=== PATIENT | male | born 1965 | race Caucasian/White ===

== ENCOUNTER 2024-11-18 14:47 | Emergency (ER) | payer OTHER, SELFPAY ==
[2024-11-18 14:54] VITALS: BP 148/87; PULSE 81; RESP 20; TEMP 37; O2SAT 98
--- NOTE | 2024-11-18 15:13 | ED.URI ---
HPI - URI/Sore Throat General Stated Complaint: cold symptoms Time Seen by Provider: 11/18/24 15:14 History of Present Illness HPI Narrative: 59 y/o male presented for c/o nasal congestion and drainage, and cough. Onset 2 days. Denies sob, wheezing, n/v/d/f/c. Took Decongestant for symptoms. Related Data Home Medications ?Medication ?Instructions ?Recorded ?Confirmed ?Last Taken ?Type No Home Medications 11/18/24 11/18/24 Unknown History Allergies Allergy/AdvReac Type Severity Reaction Status Date / Time No Known Allergies Allergy Verified 11/18/24 15:13 Review of Systems Review of Systems: per HPI Exam Narrative: GENERAL: well-appearing, no acute distress. EYES: conjunctivae clear ENT: Mucous membranes moist. nasal congestion.TM pearly solis with normal light reflex bilaterally; no tragal tenderness. Oropharynx NormalNo drooling, no hoarseness, no trismus, uvula midline. No tripod positioning, hot potato voice, or soft palate swelling. NECK: Supple. No lymphadenopathy CHEST: Clear to auscultation, breath sounds equal. No respiratory distress, speaks in full sentences. HEART: Regular rate and rhythm. No murmur heard. SKIN: Warm, dry, no rash. NEURO: Alert and oriented x3. Course Course Emergency Course: Patient is aware of diagnosis, understands and agrees to treatment plan. Anticipatory guidance given. Patient agrees to follow-up as directed and is aware of reasons to seek care at the emergency department. Portions of this record may have been created with voice recognition software Level of Care: Express Care Visit Vital Signs Vital signs: Vital Signs Temperature 98.6 F 11/18/24 14:54 Pulse Rate 81 11/18/24 14:54 Respiratory Rate 98 H 11/18/24 14:54 Blood Pressure 148/87 H 11/18/24 14:54 Pulse Oximetry 98 11/18/24 14:54 Oxygen Delivery Room Air 11/18/24 14:54 Temperature 98.6 F 11/18/24 14:54 Pulse Rate 81 11/18/24 14:54 Respiratory Rate 98 H 11/18/24 14:54 Blood Pressure 148/87 H 11/18/24 14:54 Pulse Oximetry 98 11/18/24 14:54 Oxygen Delivery Room Air 11/18/24 14:54 MDM - URI/Sore Throat MDM Narrative Medical decision making narrative: Negative flu and COVID result reviewed with pt. Advise supportive treatments. Patient is appropriate for outpatient treatment and follow-up. Differential Diagnosis Differential diagnosis: Likely upper respiratory infection, viral infection and pharyngitis Discharge Plan Discharge Clinical Impression: Upper respiratory infection Patient Disposition: Home, Self-Care Condition: Stable Instructions: Antibiotic Form, Upper Respiratory Infection (ED) Additional Instructions: Flu and COVID negative. Recommendations: Flonase spray and Zyrtec (or Claritin/Abbi) over the counter Cough syrup may cause drowsiness; avoid driving or take it at night time. Tylenol 1000mg every 8 hours as needed for pain Symptomatic treatment includes: rest, fluids, and increase humidity of the air at home. Follow up with your primary care provider Go to the ER for worsening symptoms or concerns. Patient Language: Macanese Follow-up/Referrals: PHYSICIAN,PERSONAL CLOTHING LAUNDRY AIDE [Primary Care Provider] - Time of Disposition: 15:20
[2024-11-18 15:19] LABS: EDCOVIDSCREEN Negative (Negative); EDINFLUASCREEN Negative (Negative); EDINFLUBSCREEN Negative (Negative)
--- OUTSIDE RECORDS SUMMARY | 2024-11-18 15:25 | XMS_ITS | Referral Summary ---
Author Organization [facility] Building [address] Address [address] [place] [address] Care Team Providers Care Acetone Button Paster Name Role Phone Shekhar Jewell MD Primary Care Provi porsha Encounters Date Type Department Care Team Description 09/29/2024 5:00 PM DIRECTOR OF PUBLIC SAFETY Office Visit [facility] Medical [facility] Primary Care at [address] [phone] Shekhar Jewell MD Elevated blood pressure reading without diagnosis of hypertension (Primary Dx) 09/15/2024 9:33 AM DIRECTOR OF PUBLIC SAFETY - 09/15/2024 11:59 PM DIRECTOR OF PUBLIC SAFETY [place] [address] Screening for hyperlipidemia; Elevated blood pressure reading without diagnosis of hypertension Discharge Disposition: Discharge to home or self care 09/15/2024 10:00 AM DIRECTOR OF PUBLIC SAFETY Lab [facility] Outpatient Lab at [address] [phone] 09/13/2024 5:00 PM DIRECTOR OF PUBLIC SAFETY Office Visit [facility] Primary Care at [address] [phone] Shekhar Jewell MD Elevated blood pressure reading without diagnosis of hypertension (Primary Dx); Mild intermittent asthma, unspecified whether complicated; Screening for hyperlipidemia from Last 3 Months Allergies No known active allergies Medications acetaminophen (TYLENOL) 325 mg tablet Take 2 tablets (650 mg total) by mouth every 6 (six) hours as needed for pain Active albuterol HFA (PROVENTIL HFA,VENTOLIN HFA,PROAIR HFA) 90 mcg/actuation inhalerIndication s:Mild intermittent asthma, unspecified whether complicated Inhale 2 puffs every 6 (six) hours as needed for wheezing INHALE 2 PUFFS EVERY 4 TO 6 HOURS NEEDED. 1 each 3 Active Active Problems Problem Noted Date Diagnosed Date Elevated blood pressure read ing without diagnosis of hypertension 09/13/2024 Mild intermittent asthma 09/13/2024 H/O umbilical hernia repair 03/15/2022 Assessment & Plan (03/15/2022 10:13 AM CDT): No obvious hernia on today's exam, CT abd ordered, will follow. 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 Image guidance utilized Assessment & Plan (03/02/2021 2:59 PM CDT): Continue to use Sinus Rinse twice daily Restart Flonase 1-2 times daily Follow up in 3-4 weeks Assessment & Plan (02/23/2021 11:27 AM CDT): Sinus Rinse twice daily and as needed Follow up in 1-2 weeks for recheck Finish Augmentin 02/15/21 PROCEDURE PERFORMED: Endoscopic bilateral Maxillary Antrostomies Endoscopic bilateral Chas bullosa Stealth Image guidance utilized Assessment & Plan (12/21/2020 4:04 PM DIRECTOR OF PUBLIC SAFETY): Endoscopic bilateral maxillary antrostomy Endoscopic bilateral chas bullosa removal Stealth image guidance Risks and complications include anesthesia, bleeding, infection, injury to surrounding structures including brain with csf leak, eyes with vision changes, nasal mucosa, atrophic rhinitis, benign versus malignant pathology, no guarantee that sense of smell will return, need for further surgery. 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 Chronic frontal sinusitis 05/07/2019 Assessment & Plan (11/28/2020 3:15 PM DIRECTOR OF PUBLIC SAFETY): Start Augmentin twice daily for [address] Sinus in 3-4 weeks right before follow up Continue Sinus Rinse at least once daily, Flonase 2 sprays into each nostril while looking down over the sink, do not sniff in or blow nose after use for at least 30 minutes, may increase to twice daily Ibuprofen daily Assessment & Plan (06/10/2019 9:42 AM CDT): Continue Sinus Rinse followed by the Flonase daily, Zyrtec daily, continue until the First ross and then pick back up again when tree start to blossom Follow up as needed Assessment & Plan (05/07/2019 9:59 AM CDT): Continue Zyrtec Continue Sinus Rinse followed by Flonase 2 sprays into each nostril while looking down over the sink, do not sniff in or blow nose after use twice daily Start Doxycycline twice daily with a meal BMI 27.0-27.9,adult 04/20/2019 Nonintractable episodic headache 04/20/2019 Assessment & Plan (04/20/2019 10:32 AM CDT): Recommended a trial of Flonase, Zyrtec, and Neti Pot. Referred to ENT for further eval/Tx. Consider anti-hypertensive treatment if ENT checks out ok. Encouraged compliance with allergy meds and nasal washings. 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 Cont. Current prescription medications. Assessment & Plan (11/23/2020 5:10 PM DIRECTOR OF PUBLIC SAFETY): Clinically improved, continue current meds. Resolved Problems Problem Noted Date Diagnosed Date Resolved Date Generalized abdominal pain 03/15/2022 1 11/13/2023 Assessment & Plan (03/15/2022 10:12 AM CDT): Urine dipstick ordered, tested positive for small blood. CT abd ordered. Will follow. Urinary frequency 03/15/2022 09/13/2024 Assessment & Plan (03/15/2022 10:13 AM CDT): Urine dipstick positive for small blood, CT abd ordered. Abdominal bloating 03/15/2022 Assessment & Plan (03/15/2022 10:13 AM CDT): Mild improvement overnight, CT abd ordered, will follow. Post-nasal drainage 04/20/2019 11/23/19 21 Chronic throat clearing 04/20/2019 0201/2021 Gastroesophageal reflux dise ase without esophagitis 09/07/2018 11/23/2020 Assessment & Plan (04/20/2019 10:32 AM CDT): Patient has not been taking the pantoprazole, encouraged patient to re-start. Rx given. Assessment & Plan (09/08/2018 1:59 PM DIRECTOR OF PUBLIC SAFETY): Start Protonix twice a day for 2 weeks then go down to once a day Raise head of bed TUMs and Zantac as needed GERD Recommend Weight loss for patients with GERD who are overweight. Elevate of the head of the bed in individuals with nocturnal symptoms like cough, hoarseness, throat clearing. This can be achieved either by putting six- to eight-inch blocks under the legs at the head of the bed or a Styrofoam wedge under the mattress. We also suggest a corollary to this recommendation: refraining from assuming a supine position after meals and avoidance of meals two to three hours before bedtime. Dietary modification. Suggest selective elimination of dietary triggers like fatty foods, caffeine, chocolate, spicy foods, food with high fat content, carbonated beverages, and peppermint. Avoid tight-fitting garments to prevent increasing intragastric pressure. Promotion of salivation through oral lozenges/chewing gum to neutralize refluxed acid and increases the rate of esophageal acid clearance. Avoidance of tobacco and alcohol as both reduce lower esophageal sphincter pressure and smoking also diminishes salivation. Try Abdominal breathing exercise to strengthen the ant-reflux barrier of the lower esophageal sphincter. Red flags symptoms include difficulty swallowing, bleeding, anemia, weight loss, and recurrent vomiting. If you have any of these, go to ER STOP all motrin, ibuprofen, aleve, naprosyn Back pain of lumbar region with sciatica 08/10/2018 11/23/2020 Assessment & Plan (09/08/2018 1:58 PM DIRECTOR OF PUBLIC SAFETY): Follow up -Back has improved Assessment & Plan (08/10/2018 4:59 PM CDT): Presents with back pain. Has hx of back pain. It was aggravated by playing golf. This is an acute flare up. He has been trying Naproxen, motrin, Aleve with no relief. Trying stretching, heat and ROM exercises. MRI in 2013- IMPRESSION: 1. ADVANCED DEGENERATIVE DISC DISEASE AT L5-S1; MINIMAL AT L3-4. 2. MILD DIFFUSE LUMBAR FACET DEGENERATIVE CHANGES BILATERALLY WITHOUT IMPINGEMENT. 3. OTHERWISE NORMAL MRI LUMBAR SPINE. Acute back pain-Most patients who present with back pain will have nonspecific back pain. You will typically improve over a few to several weeks with conservative or self-care. Usually, Imaging is not needed unless you have specific signs and symptoms like history of recent trauma, fever, recent infection, dialysis, hx of cancer, old age, osteoporosis,frequent steroid use or any red flags .. If your back pain does not improve in 4-6 weeks, we can get an x-ray. If your back pain does not improve in 4-6 weeks, we can get physical therapy. Most acute back pain gets better by 4-6 weeks. Most patients with acute low back pain do not require any laboratory testing. In some patients with suspected infection or malignancy, we use the erythrocyte sedimentation rate (ESR) and/or C-reactive protein (CRP) and a CBC. Red flags include: new urinary retention, urinary incontinence from bladder overflow, new fecal incontinence, saddle anesthesia (loss of sensation in buttock, perineum and inner surfaces of the thighs), progressive motor weakness, fever, -go to the ER Activity modification should generally be minimal, return to activities of daily living and work as soon as possible. If activity is painful or increases pain, do as much as you can and gradually increase activity as tolerated. Nonsteroidal antiinflammatory drugs -- We start with NSAID therapy in patients with acute low back pain without contraindications to this therapy. Meds like Ibuprofen, Motrin, Aleve, Naprosyn. NSAIDs may have significant renal, gastrointestinal, and cardiovascular adverse effects and may be contraindicated in some patients. Acetaminophen is an option for therapy for low back pain. Combination with muscle relaxants -- Muscle relaxants are a group of drugs with similar physiologic effects including analgesia and a degree of skeletal muscle relaxation or relief of muscle spasm. These can be combined with NSAIDs or Tylenol (Acetaminophen). These medications include: cyclobenzaprine, methocarbamol, baclofen, and tizanidine. Heat -- Heat is often applied with the rationale that it may reduce muscle spasm Massage Cold - Application of cold is often recommended for patients with acute back pain, with the rationale that it may help reduce edema Acupuncture may be a reasonable option for interested patients with access to an datastage developer. Spine Inspection- normal Spine palpation- normal Reflexes-Patellar- Achilles- normal Strength/weakness- Hip- Knee- Foot-normal Sensory loss/numness- Thigh- Calf- Foot all normal Gait- Heel walk-normal Toe walk- normal Straight leg raise-right leg raise abnormal, weakness Do prednisone as prescribed-take with food Do not take Naproxen while on steroid (Prednisone) Take Tylenol every 8 hours for the next 2-3 days If no improvement-RTC in 4 weeks Does not want Physical Therapy at this time Sprain of interphalangeal nacho int of right ring finger 10/28/2017 11/23/2020 Assessment & Plan (10/28/2017 10:50 AM DIRECTOR OF PUBLIC SAFETY): Referred to Ortho. NSAIDs added. Immunizations Name Administration Dates Next Due Flucelvax Influenza Quad 07/28/2020 Influenza, Quadrivalent, Kaye l Culture-based MDCK, Antibiotic Free, Intramuscular 09/07/2018 Influenza, Quadrivalent, Spl it, Intramuscular 07/20/2015 Influenza, Quadrivalent, Spl it, Preservative Free, Intramuscular 10/17/2017 Influenza, Split 11/18/2012,08/08/2010 Influenza, Trivalent, Preser vative Free, Intramuscular 07/16/2024 Influenza, Unspecified 08/07/2023(Deferr ed: Patient Refused),09/07/2018 Pneumococcal Polysaccharide PPV23 10/08/2010 Tdap 10/08/2010 Social History Tobacco Use Types Packs/Day Years Used Date Smoking Tobacco: Former Cigarettes 1 2007 Smokeless Tobacco: Never Tobacco Cessation:Counseling Given: Not Answered Alcohol Use Standard Drinks/Week Comments Yes 0 (1 standard drink = 0.6 oz pur e alcohol) 3 times a week AUDIT-C Answer Date Recorded Q1: How often do you have a drink containing alc ohol? Monthly or less 02/15/2021 Q2: How many drinks containi ng alcohol do you have on a typical day when you are drinking? 1 or 2 02/15/2021 Q3: How often do you have si x or more drinks on one occasion? Never 02/15/2021 PHQ-2 Answer Date Recorded PHQ-2 Total Score (If total score is 3 or more points, staff should administer the PHQ-9) 0 09/13/2024 Sex and Gender Information Value Date Recorded Sex Assigned at Not on file Legal Sex Male 2:04 PM DIRECTOR OF PUBLIC SAFETY Gender Identity Not on file Sexual Orientation Not on file Last Filed Vital Signs Vital Sign Reading Time Taken Comments Blood Pressure 132/88 09/29/2024 4:57 PM DIRECTOR OF PUBLIC SAFETY Pulse 63 09/29/2024 4:57 PM DIRECTOR OF PUBLIC SAFETY Temperature 36.3 ??C (97.3 ??F) 09/29/2024 4:57 PM CS T Respiratory Rate 16 07/15/2024 2:37 PM CDT Oxygen Saturation 97% 09/29/2024 4:57 PM DIRECTOR OF PUBLIC SAFETY Inhaled Oxygen Concentration - - Weight 83 kg (183 lb) 09/29/2024 4:57 PM DIRECTOR OF PUBLIC SAFETY Height 172.7 cm (5' 8 ) 09/29/2024 4:57 PM DIRECTOR OF PUBLIC SAFETY Body Mass Index 27.83 09/29/2024 4:57 PM DIRECTOR OF PUBLIC SAFETY Plan of Treatment Not on file Procedures Procedure Name Priority Date/Time Associated Diagnosis Comments EGFR Routine 09/15/2024 9:33 AM DIRECTOR OF PUBLIC SAFETY Elevated blood pressure reading without diagnosis of hypertension COMPREHENSIVE METABOLIC PANEL Routine 09/15/2024 9:33 AM DIRECTOR OF PUBLIC SAFETY Elevated blood pressure reading without diagnosis of hypertension LIPID PANEL Routine 09/15/2024 9:33 AM DIRECTOR OF PUBLIC SAFETY Screening for hyperlipidemia HEPATITIS C ANTIBODY Routine 11/28/2020 1:50 PM DIRECTOR OF PUBLIC SAFETY Encounter for hepatitis C screening test for low risk patient COLONOSCOPY 12/25/2017 9:16 AM DIRECTOR OF PUBLIC SAFETY from Last 3 Months or Most Recently Relevant to Health Maintenance Results * eGFR (09/15/2024 9:33 AM DIRECTOR OF PUBLIC SAFETY) eGFR 85 >=60 mL/min/1. 73 m2 Comment: Interpretive Data Reference Interval Normal ?>/= 90 mL/min/1.73m2 Mildly decreased* ? 60 - 89 mL/min/1.73m2 Mildly to moderately decreased ?45 - 59 mL/min/1.73m2 Moderately to severely decreased ??30 - 44 mL/min/1.73m2 Severely decreased ?15 - 29 mL/min/1.73m2 Kidney Failure ?< 15 ??mL/min/1.73m2 *Relative to young adult level Estimated glomerular filtration rate is determined by the 2020 CKD-EPI equation recommended by the National Kidney Foundation (A Unifying Approach to GFR Estimation: Recommendations of the NKF-ASK Task Force on Reassessing the Inclusion of Race in Diagnosing Kidney Disease, JASN 2020). The CKD-EPI equation should not be used for patients with unstable renal function and has not been validated in children and those over 70. Current interpretive data was last reviewed 2021. Blood 09/15/2024 9:33 AM DIRECTOR OF PUBLIC SAFETY 09/15/2024 3:56 PM DIRECTOR OF PUBLIC SAFETY us Shekhar Jewell MD LAB BLOOD ORDERABLE S Final Result [facility] [address] [address] Department of Laboratories [place] [phone] * Lipid panel (09/15/2024 9:33 AM DIRECTOR OF PUBLIC SAFETY) Cholesterol 180 30 - 199 mg/dL Comment: Interpretive Data Ages < or = 19 years ??Acceptable: ? <170 mg/dL ??Borderline high: ??170-199 mg/dL ??High: ? >or= 200 mg/dL Ages > or = 20 years ??Desirable: ?<200 mg/dL ??Borderline high: ??200-239 mg/dL ??High: ? >or= 240 mg/dL Literature References: 1. Expert Panel on Integrated Guidelines for Cardiovascular Health and Risk Reduction in Children and Adolescents. Pediatrics 2011;128:S213 2. NCEP Expert Panel. Circulation 2004;110:227 Current Interpretive Data was last revised on 2018. Triglycerides 94 <=149 mg/dL [facility] Comment: Interpretive Data Ages < or = 9 years ??Acceptable: ? <75 mg/dL ??Borderline high: ??75-99 mg/dL ??High: ? >or= 100 mg/dL Ages 10 to 20 years ??Acceptable: ? <90 mg/dL ??Borderline high: ??90-129 mg/dL ??High: ? >or= 130 mg/dL Ages > or = 20 years ??Desirable: ?<150 mg/dL ??Borderline high: ??150-199 mg/dL ??High: ? 200-499 mg/dL ?Very high: ?? >or= 499 mg/dL Literature References: 1. Expert Panel on Integrated Guidelines for Cardiovascular Health and Risk Reduction in Children and Adolescents. Pediatrics 2011;128:S213 2. NCEP Expert Panel. Circulation 2004;110:227 Current Interpretive Data was last revised on 2018. HDL 52 >=40 mg/dL [facility] Comment: Interpretive Data Ages < or = 19 years ??Acceptable: ? >45 mg/dL ??Borderline low: ?? 40-45 mg/dL ??Low: ? <40 mg/dL Ages > or = 20 years ??Desirable: ?>or= 60 mg/dL ??Low: ? <40 mg/dL Literature References: 1. Expert Panel on Integrated Guidelines for Cardiovascular Health and Risk Reduction in Children and Adolescents. Pediatrics 2011;128:S213 2. NCEP Expert Panel. Circulation 2004;110:227 Current Interpretive Data was last revised on 2018. LDL, calculated 111 <=129 mg/dL [facility] Comment: Interpretive Data Ages < or = 19 years ??Acceptable: ? <110 mg/dL ??Borderline high: ??110-129 mg/dL ??High: ?>or= 130 mg/dL Ages > or = 20 years ??Optimal: ? <100 mg/dL ??Near optimal: ?100-129 mg/dL ??Borderline high: ?? 130-159 mg/dL ??High: ?>160 mg/dL Calculated using the Patrick LDL-C estimating equation. This equation was implemented on 2024. Prior to this date LDL-C was estimated using the Friedewald equation. Literature References: 1. Expert Panel on Integrated Guidelines for Cardiovascular Health and Risk Reduction in Children and Adolescents. Pediatrics 2011;128:S213 2. NCEP Expert Panel. Circulation 2004;110:227 3. Darnell M et al. LANEY Cardiol. 2020 February 17;5(5):540-548. doi: 10.1001/jamacardio.2020.0013 Current Interpretive Data was last revised on 2024. Non-HDL Cholesterol 128 mg/dL [facility] Comment: Interpretive Data Ages < or = 19 years ??Acceptable: ?<120 mg/dL ??Borderline high: ??120-144 mg/dL ??High: ?>145 mg/dL Ages > or = 20 years ??When triglycerides are >200 mg/dL, Non-HDL cholesterol is a secondary target of ? therapy with treatment goals that are 30 mg/dL greater than the LDL cholesterol target. ? Literature References: 1. Expert Panel on Integrated Guidelines for Cardiovascular Health and Risk Reduction in Children and Adolescents. Pediatrics 2011;128:S213 2. NCEP Expert Panel. Circulation 2004;110:227 Current Interpretive Data was last revised on 2018. Chol/HDL ratio 3 [facility] CH Blood 09/15/2024 9:33 AM DIRECTOR OF PUBLIC SAFETY 09/15/2024 3:54 PM DIRECTOR OF PUBLIC SAFETY us Shekhar Jewell MD LAB BLOOD ORDERABLE S Final Result [facility] [address] [address] Department [place] [address] * Comprehensive metabolic panel (09/15/2024 9:33 AM DIRECTOR OF PUBLIC SAFETY) Sodium 139 135 - 145 mmol/L Potassium, pl 4.4 3.3 - 4.9 mmol/L [facility] Chloride 103 97 - 110 mmol/L [facility] CO2 28 22 - 32 mmol/L [facility] Anion gap 8 2 - 15 mmol/L [facility] BUN 12 6 - 25 mg/dL [facility] Creatinine 1.03 0.80 - 1.30 mg/dL [facility] Glucose 96 70 - 199 mg/dL [facility] Comment: Interpretive Data Fasting glucose >/= 126 mg/dl is diagnostic for diabetes. ?? Fasting is defined as no caloric intake for at least 8 hours. Fasting glucose between 100 mg/dl to 125 mg/dl is diagnostic of prediabetes. In a patient with classic symptoms of hyperglycemia or hyperglycemic crisis, a random glucose >/= 200 mg/dl is diagnostic for diabetes. In the absence of unequivocal hyperglycemia, results should be confirmed by repeat testing. The classification and Diagnosis of Diabetes Diabetes Care 202; 46: S19-S40. Current interpretive data was last revised 2022. Calcium 9.3 8.5 - 10.3 mg/dL [facility] Bilirubin, total 0.4 0.1 - 1.2 mg/dL [facility] Protein, pl 7.3 6.5 - 8.5 g/dL [facility] Albumin 4.1 3.5 - 5.0 g/dL [facility] Alk phos 65 40 - 130 Units/L [facility] ALT 10 7 - 55 Units/L [facility] AST 23 10 - 50 Units/L [facility] Blood 09/15/2024 9:33 AM DIRECTOR OF PUBLIC SAFETY 09/15/2024 3:54 PM DIRECTOR OF PUBLIC SAFETY us Shekhar Jewell MD LAB BLOOD ORDERABLE S Final Result [facility] [address] Department [place] [address] * Hepatitis C antibody (11/28/2020 1:50 PM DIRECTOR OF PUBLIC SAFETY) Hep C Ab Nonreactive Nonreactive [facility] Comment: Interpretive Data Nonreactive: Antibodies to HCV not detected. Does NOT exclude the possibility of recent exposure to HCV. Equivocal: Equivocal for HCV antibodies. Supplemental molecular testing will be automatically performed to determine infection status in accordance with current CDC screening recommendations. ?? Reactive: Positive for HCV antibodies. ??This may represent current or past HCV infection. Supplemental molecular testing will be automatically performed to determine ??current infection status in accordance with current CDC screening recommendations. Interpretive data was last revised on 2020. Testing performed by: [facility], [address] [place] [address], [place]., [address] Blood specimen (specimen) 11/28/2020 1:50 PM DIRECTOR OF PUBLIC SAFETY 11/28/2020 9:18 PM DIRECTOR OF PUBLIC SAFETY us Marilu Warren DO LAB MICROBIOLOGY - GENERAL ORDERABLES Final Result [facility] [place] [facility] [place] [address] * COLONOSCOPY (12/25/2017 9:16 AM DIRECTOR OF PUBLIC SAFETY) Anatomical Region Laterality Modality Other Narrative Procedure Note Delmar Miller MD - 12/25/2017 9:16 AM CST [facility] Endoscopy Lab Patient Name: Corwin Alejandre Procedure Date: 12/25/2017 9:16 AM Date of : 1965 Admit Type: Outpatient Age: 52 Gender: Male Note Status: Finalized Attending MD: Delmar Miller MD Procedure Date: 12/25/2017 Procedure: Colonoscopy Indications: Screening for colorectal malignant neoplasm, This is the patient's first colonoscopy Providers: Delmar Miller MD, Miguel Brenner MD (Anesthesia Staff), Danis Avelar RN Referring MD: Marilu Warren DO Medicines: Monitored Anesthesia Care Complications: No immediate complications. Estimated Blood Loss: Estimated blood loss: none. Procedure: Pre-Anesthesia Assessment: - Prior to the procedure, a History and Physical was performed, and patient medications and allergieswere reviewed. The patient is competent. The risks and benefits of the procedure and the sedation optionsand risks were discussed with the patient. All questions were answered and informed consent was obtained. Patient identification and proposed procedure were verified by the physician, the nurse and the anesthesiologist in the procedure room. MentalStatus Examination: alert and oriented. Airway Examination: normal oropharyngeal airway and neck mobility. Respiratory Examination: clear to auscultation. CV Examination: normal. Prophylactic Antibiotics: The patient does not require prophylactic antibiotics. Prior Anticoagulants: The patient has taken previous NSAID medication, last dose was 7 days prior to procedure. ASA Grade Assessment: II - A patient with mild systemic disease. After reviewing the risks and benefits, the patient was deemed in satisfactory condition to undergo the procedure. The anesthesiaplan was to use monitored anesthesia care (MAC).Immediately prior to administration of medications, the patientwas re-assessed for adequacy to receive sedatives. The heart rate, respiratory rate, oxygen saturations,blood pressure, adequacy of pulmonary ventilation, and response to care were monitored throughout the procedure. The physical status of the patient was re-assessed after the procedure. - The risks and benefits of the procedure and the sedation options and risks were discussed with the patient. All questions were answered and informed consent was obtained. After I obtained informed consent, the scope waspassed under direct vision. Throughout the procedure, the patient's blood pressure, pulse, and oxygensaturations were monitored continuously. The scope was passedunder direct vision. The Colonoscope CF-Q180 [place] [id number] introduced through the anus and advanced to the the cecum, identified by appendiceal orifice andileocecal valve. The colonoscopy was performed without difficulty. The patient tolerated the procedurewell. The quality of the bowel preparation was adequate.The bowel preparation used was SUPREP. Findings: Multiple small and large-mouthed diverticula were found in thesigmoid colon, in the descending colon and in the transverse colon. The exam was otherwise without abnormality on direct and retroflexion views. Impression: - Diverticulosis in the sigmoid colon, in the descending colon and in the transverse colon. - The examination was otherwise normal on direct and retroflexion views. - No specimens collected. - Colonic polyps were not seen. Recommendation: - High fiber diet. - Repeat colonoscopy in 10 years for screeningpurposes. Procedure Code(s): --- Professional --- 32492, Colonoscopy, flexible; diagnostic, including collection of specimen(s) by brushing or washing,when performed (separate procedure) Diagnosis Code(s): --- Professional --- Z12.11, Encounter for screening for malignantneoplasm of colon K57.30, Diverticulosis of large intestine without perforation or abscess without bleeding CPT copyright 2014 [employer]. All rights reserved. The codes documented in this report are preliminary and upon coater operator reviewmay be revised to meet current compliance requirements. Electronically signed by Delmar Miller M.D. Delmar Miller MD 12/25/2017 9:43:46 AM Number of Addenda: 0 Note Initiated On: 12/25/2017 9:16 AM Delmar Miller MD ENDOSCOPY PROCEDURES Fi nal Result from Last 3 Months or Most Recently Relevant to Health Maintenance Insurance [facility] CHOICE PLUS [id number] [id number] [employer] Care Teams Acetone Button Paster Relationship Specialty Start Date End Date Shekhar Jewell MD [address] [place] [facility] [address] [address] PCP - General Family Practice 09/13/24
--- OUTSIDE RECORDS SUMMARY | 2024-11-18 15:25 | XMS_ITS | Clinical Summary ---
Author Organization [facility] Building [address] Address [address] [place] [address] Care Team Providers Care Drupal Programmer Name Role Phone Shekhar Jewell MD Primary Care Provi porsha Allergies No known active allergies Medications acetaminophen [...] TO 6 HOURS NEEDED. 1 each 3 4 Active Active Problems Problem Noted Date Diagnosed [...] utilized Assessment & Plan (12/21/2020 4:04 PM CH[employer]BER OF [employer] DIVISION MANAGER): Endoscopic bilateral maxillary antrostomy Endoscopic bilateral chas bullosa removal Stealth image guidance Risks and complications include anesthesia, bleeding, infection, injury to surrounding structures including brain with csf leak, eyes with vision changes, nasal mucosa, atrophic rhinitis, benign versus malignant pathology, no guarantee that sense of smell will return, need for further surgery. 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 Chronic frontal sinusitis 05/07/2019 Assessment & Plan (11/28/2020 3:15 PM [employer]BER [employer] DIVISION MANAGER): Start Augmentin twice daily for 14 days [...] fumes Assessment & Plan (11/28/2021 9:45 PM CH[employer]BER OF [employer] DIVISION MANAGER): Stable. Cont. Current prescription medications. Assessment & Plan (11/23/2020 5:10 PM CH[employer]BER OF [employer] DIVISION MANAGER): Clinically improved, continue current meds. Resolved Problems [...] given. Assessment & Plan (09/08/2018 1:59 PM CH[employer]BER OF [employer] DIVISION MANAGER): Start Protonix twice a day for 2 [...] 11/23/2020 Assessment & Plan (09/08/2018 1:58 PM CH[employer]BER OF [employer] DIVISION MANAGER): Follow up -Back has improved Assessment & [...] for interested patients with access to an clinical team manager. Spine Inspection- normal Spine palpation- normal Reflexes-Patellar- [...] 11/23/2020 Assessment & Plan (10/28/2017 10:50 AM CH[employer]BER [employer] DIVISION MANAGER): Referred to Ortho. NSAIDs added. Encounters Date Type Department Care Team Description 09/29/2024 5:00 PM CH[employer]BER OF [employer] DIVISION MANAGER Office Visit [facility] Primary Care at [address] [phone] Shekhar Jewell MD Elevated blood pressure reading without diagnosis of hypertension (Primary Dx) 09/15/2024 10:00 AM CHAMBER OF [employer] DIVISION MANAGER Lab [facility] Outpatient Lab at [address] [phone] 09/15/2024 9:33 AM CH[employer]BER OF [employer] DIVISION MANAGER - 09/15/2024 11:59 PM CH[employer]BER OF [employer] DIVISION MANAGER Hospital Encounter [address] [address] Screening for hyperlipidemia; Elevated blood pressure reading without diagnosis of hypertension Discharge Disposition: Discharge to home or self care 09/13/2024 5:00 PM [employer]BER [employer] DIVISION MANAGER Office Visit [facility] Primary Care at [address] [phone] Shekhar Jewell MD Elevated blood pressure reading without diagnosis of hypertension (Primary Dx); Mild intermittent asthma, unspecified whether complicated; Screening for hyperlipidemia from Last 3 Months Immunizations Name Administration Dates Next Due Flucelvax Influenza Quad 07/28/2020 Influenza, Quadrivalent, Kaye l Culture-based MDCK, Antibiotic Free, Intramuscular 09/07/2018 Influenza, Quadrivalent, Spl it, Intramuscular 07/20/2015 Influenza, Quadrivalent, Spl it, Preservative Free, Intramuscular 10/17/2017 Influenza, Split 11/18/2012,08/08/2010 Influenza, Trivalent, Preser vative Free, Intramuscular 07/16/2024 Influenza, Unspecified 08/07/2023(Deferr ed: Patient Refused),09/07/2018 Pneumococcal Polysaccharide PPV23 10/08/2010 Tdap 10/08/2010 Surgical History Surgery Date Site/Laterality Comments OTHER SURGICAL HISTORY 10/20/2006 - 10/19/2007 myopia: lasik OTHER SURGICAL HISTORY 10/20/1995 - 10/19/1996 abdominal hernia: repair OTHER SURGICAL HISTORY 10/20/2009 - 10/19/2010 contraception: vasectomy COLONOSCOPY 1st screening HERNIA REPAIR SINUS SURGERY Bilateral Medical History Medical History Date Comments Hx Other Medical myopia Hx Other Medical abdominal herni a Hx Other Medical vasectomy contraception Hx Other Medical Back pain Gout gout Neuropathy in diabetes (HCC) Asthma Asthma, chemical ly induced Vasovagal response GERD (gastroesophageal reflux disease) Family History Medical History Relation Name Comments Diabetes type II Father Diabetes -T ype 2; Obesity Father Obesity; Hypertension Mother Hypertension; Other Mother cardiac valve d isorder; Relation Name Status Comments Father Mother Social History Tobacco Use Types Packs/Day Years Used Date Smoking Tobacco: Former Cigarettes 2007 Smokeless Tobacco: Never Tobacco Cessation:Counseling Given: [...] on file Legal Sex Male 2:04 PM [employer] DIVISION MANAGER Gender Identity Not on file Sexual Orientation Not on file Obstetrics History Last Filed Vital Signs Vital Sign Reading Time Taken Comments Blood Pressure 132/88 09/29/2024 4:57 PM [employer]BER OF [employer] DIVISION MANAGER Pulse 63 09/29/2024 4:57 PM CH[employer]BER OF [employer] DIVISION MANAGER Temperature 36.3 ??C (97.3 ??F) 09/29/2024 4:57 PM CS T Respiratory Rate 16 07/15/2024 2:37 PM CDT Oxygen Saturation 97% 09/29/2024 4:57 PM [employer] DIVISION MANAGER Inhaled Oxygen Concentration - - Weight 83 kg (183 lb) 09/29/2024 4:57 PM CH[employer]BER OF [employer] DIVISION MANAGER Height 172.7 cm (5' 8 ) 09/29/2024 4:57 PM CH[employer]BER OF [employer] DIVISION MANAGER Body Mass Index 27.83 09/29/2024 4:57 PM CH[employer]BER OF [employer] DIVISION MANAGER Plan of Treatment Health Maintenance Due Date Last Done Comments Prostate Cancer Screening-PSA 1967 Hepatitis B Screening 1985 Pneumococcal vaccine <65 (2 of 2 - PCV) 10/08/2011 10/08/2010 Zoster Vaccine (1 of 2) 2017 DTaP/Tdap/Td Vaccine (2 - Td or Tdap) 10/08/2020 10/08/2010 Regular Well Visit/Exam 18-64 11/27/2022, 11/23/2020, 11/25/2017 Depression Screening 09/13/2025 09/13/2024, 03/15/2022, 11/27/2021, Additional history exists Colon Cancer Screening-Colonoscopy 12/26/2027 12/25/2017, 12/25/2017 Colon Cancer Screening-CT Colonography Discontinued 12/25/2017, 12/25/2017 Colon Cancer Screening-DNA Stool Discontinued 12/26/19 18, 12/25/2017 Colon Cancer Screening-FIT Discontinued 12/25/2017, Colon Cancer Screening-Sigmoidoscopy Discontinued 12/25/2017, 12/25/2017 Hepatitis C Screening Completed 11/28/2020 Covid-19 Vaccine Completed 07/16/2024, 11/2022, 10/19/2021, Additional history exists Influenza Vaccine Completed 07/16/2024, , 09/07/2018, Additional history exists Procedures Procedure Name Priority Date/Time Associated Diagnosis Comments EGFR Routine 09/15/2024 9:33 AM CH[employer]BER OF [employer] DIVISION MANAGER Elevated blood pressure reading without diagnosis of hypertension COMPREHENSIVE METABOLIC PANEL Routine 09/15/2024 9:33 AM CH[employer]BER OF [employer] DIVISION MANAGER Elevated blood pressure reading without diagnosis of hypertension LIPID PANEL Routine 09/15/2024 9:33 AM CH[employer]BER OF [employer] DIVISION MANAGER Screening for hyperlipidemia HEPATITIS C ANTIBODY Routine 11/28/2020 1:50 PM CH[employer]BER OF [employer] DIVISION MANAGER Encounter for hepatitis C screening test for low risk patient COLONOSCOPY 12/25/2017 9:16 AM CH[employer]BER OF [employer] DIVISION MANAGER from Last 3 Months or Most Recently Relevant to Health Maintenance Results * eGFR (09/15/2024 9:33 AM CHAMBER OF COMM[employer] DIVISION MANAGER) eGFR 85 >=60 mL/min/1. 73 m2 Comment: [...] last reviewed 2021. Blood 09/15/2024 9:33 AM CHAMBER OF COMM[employer]CE DIVISION MANAGER 09/15/2024 3:56 PM CHAMBER OF [employer] DIVISION MANAGER us Shekhar Jewell MD LAB BLOOD ORDERABLE S Final Result Performing Organization Address City/State/[facility] [place] Phone Number ARLEN [phone] [address] [place] [address] * Lipid panel (09/15/2024 9:33 AM CHAMBER OF COMMERCE DIVISION MANAGER) Cholesterol 180 30 - 199 mg/dL Comment: [...] mg/dL ??High: ?>160 mg/dL Calculated using the Darnell LDL-C estimating equation. This equation was implemented on 2024. Prior to this date LDL-C was estimated using the Friedewald equation. Literature References: 1. Expert Panel on Integrated Guidelines for Cardiovascular Health and Risk Reduction in Children and Adolescents. Pediatrics 2011;128:S213 2. NCEP Expert Panel. Circulation 2004;110:227 3. Darnell Vickers et al. LANEY Cardiol. 2020 February 17;5(5):540-548. [...] revised on 2018. Chol/HDL ratio 3 CERNER Blood 09/15/2024 9:33 AM CHAMBER OF COMMERCE DIVISION MANAGER 09/15/2024 3:54 PM CHAMBER OF COMMERCE DIVISION MANAGER us Shekhar Jewell MD LAB BLOOD ORDERABLE S Final Result [facility] [address] [address] [place] Department [place] [address] * Comprehensive metabolic panel (09/15/2024 9:33 AM CHAMBER OF COMMERCE DIVISION MANAGER) [facility] Sodium 139 135 - 145 mmol/L Potassium, pl 4.4 3.3 - 4.9 mmol/L CERNER Chloride 103 97 - 110 mmol/L CERNER CH CO2 28 22 - 32 mmol/L CERNER CH Anion gap 8 2 - 15 mmol/L CERNER CH BUN 12 6 - 25 mg/dL CERNER CH Creatinine 1.03 0.80 - 1.30 mg/dL CERNER Glucose 96 70 - 199 mg/dL CERNER [...] classification and Diagnosis of Diabetes Diabetes Care 2021; 46: S19-S40. Current interpretive data was last [...] Units/L CERNER CH Blood 09/15/2024 9:33 AM CHAMBER OF COMMERCE DIVISION MANAGER 09/15/2024 3:54 PM CHAMBER OF COMMERCE DIVISION MANAGER Shekhar Jewell MD LAB BLOOD ORDERABLE S Final Result [address] Department of Laboratories [place] [id number] * Hepatitis C antibody (11/28/2020 1:50 PM CHAMBER OF COMMERCE DIVISION MANAGER) Hep C Ab Nonreactive Nonreactive [facility] Comment: Interpretive Data Nonreactive: Antibodies to [...] last revised on 2020. Testing performed by: [facility], [address] [place] [address]., [id number] Blood specimen (specimen) 11/28/2020 1:50 PM CHAMBER OF COMMERCE DIVISION MANAGER 11/28/2020 9:18 PM CHAMBER OF [employer] DIVISION MANAGER us Marilu Warren DO LAB MICROBIOLOGY - GENERAL ORDERABLES Final Result [facility] [place]) [address] [place] [address] * COLONOSCOPY (12/25/2017 9:16 AM CHAMBER OF COMMER[employer] DIVISION MANAGER) Anatomical Region Laterality Modality Other Narrative Procedure Note Delmar Miller MD - 12/25/2017 9:16 AM CST [facility] Patient Name: Corwin Alejandre Procedure [...] passedunder direct vision. The Colonoscope CF-Q180 [place] [id number] introduced through the anus and advanced to [...] for screeningpurposes. Procedure Code(s): --- Professional --- 48536, Colonoscopy, flexible; diagnostic, including collection of specimen(s) by brushing or washing,when performed (separate procedure) Diagnosis Code(s): --- Professional --- Z12.11, Encounter for screening for malignantneoplasm of colon K57.30, Diverticulosis of large intestine without perforation or abscess without bleeding CPT copyright 2014 [employer]. All rights reserved. The codes documented in this report are preliminary and upon correspondence specialist reviewmay be revised to meet current compliance requirements. Electronically signed by Delmar Miller M.D. Delmar Miller MD 12/25/2017 9:43:46 AM Number of Addenda: 0 Note Initiated On: 12/25/2017 9:16 AM Delmar Miller MD ENDOSCOPY PROCEDURES Fi nal Result from Last 3 Months or Most Recently Relevant to Health Maintenance Insurance [facility] CHOICE PLUS [employer] Care Teams Drupal Programmer Relationship Specialty Start Date End Date Shekhar Jewell MD [address] [place] [address] [address] PCP - General Family Practice 09/13/24
== END 2024-11-18 15:22 | disposition home or self-care (01) ==
PROVIDERS: Emergency Provider Nurse Practitioner Family
DX: J06.9 Acute upper respiratory infection, unspecified (principal); Z20.822 Contact with and (suspected) exposure to COVID-19
CPT/HCPCS: 87426; 87804; 99202; G0463